=== PATIENT | male | born 1970 | race Caucasian/White ===

== ENCOUNTER 2018-06-10 09:18 | Day surgery (SDC) | payer OTHER, SELFPAY ==
[2018-06-10 09:42] VITALS: BP 130/82; PULSE 79; RESP 18; TEMP 36.8; O2SAT 98; BMI 33.7
[2018-06-10 09:52] LABS: Absolute Lymphocyte Count 1.97 X10^3/ul (0.83-4.51); Absolute Neutrophil Count 4.1 X10^3/uL (2.0-7.7); Basophil# 0.02 X10^3/uL; Basophil% 0.3 % (0-1); Eosinophil# 0.09 X10^3/uL; Eosinophils% 1.4 % (0-5); Hematocrit 48.3 % (40-54); Hemoglobin 17.2 g/dl (13.0-16.5); Lymphocyte # 1.97 X10^3/ul (4.0); Lymphocyte % 29.6 % (19-41); Mean Corp Hgb Conc 35.6 g/gl (32-36); Mean Corpuscular Hgb 30.1 pg (27.0-32.0); Mean Corpuscular Volume 84.6 fL (80-94); Mean Platelet Vol. 9.3 fl (6.2-12.0); Monocyte# 0.47 X10^3/uL; Monocyte% 7.1 % (0-10); Neutrophil % 61.4 % (47-70); Platelet Count 246 K/mm3 (150-450); RBC Distribution Width CV 13.4 % (11.6-14.6); RBC Distribution Width SD 41.7 fl (35.1-43.9); Red Blood Count 5.71 M/mm3 (4.6-6.2); White Blood Count 6.7 K/mm3 (4.4-11.0)
[2018-06-10 09:53] LABS: POSITIVE COUNT NO; POSITIVE DIFFERENTIAL NO; POSITIVE MORPHOLOGY NO
[2018-06-10] MEDS: Bupivacaine 0.5% PF 10 ML VIAL (09:54)
[2018-06-10 10:05] LABS: Anion Gap 9 (5-15); BUN 11 mg/dL (7-18); BUN/Creat Ratio 12.2 RATIO (10-20); Calcium,Total 9.3 mg/dL (8.5-10.1); Chloride 107 mmol/L (98-107); EST Glomerular Filtration Rate 96 mL/min (>60); Est Glom Filt Rate - Afr Amer 116 mL/min (>60); Estimated Creatinine Clearance 98.17 ml/min; Glucose 124 mg/dL (74-106); Potassium 4.1 mmol/L (3.5-5.1); Sodium Level 140 mmol/L (136-145)
[2018-06-10 10:11] LABS: Bedside Glucose 132 mg/dL (70-110)
[2018-06-10] MEDS: Cefazolin 2 GM in 0.9% Normal Saline 100 ML IV (10:24)
--- NOTE | 2018-06-10 11:18 | PCM.DC.POD ---
Discharge Diet: Light diet - advance as tolerated Discharge Activity: May Not Drive Weight Bearing Status: No weight bearing - No weightbearing right foot Keep extremity elevated above heart level: Right Leg - Keep right foot elevated using pillows for at least 50 minutes of every hour Call your doctor if your incision/area has: Continuous Slow Oozing, Sudden Increased Bleeding, Foul Smelling Discharge Call your doctor if you observe: Fever of 101 or Higher, Coldness, Increased Pain, Shortness of breath, Increased palpitations (irregular heartbeat), Calf discomfort, Uncontrolled pain Cleanse incision/area with: Do not get Incision Wet, Keep Dressing Clean & Dry Allergies/Adverse Reactions: Allergies liraglutide [From Victoza] Allergy (Verified 06/03/18 12:01) Other GAVE PT PANCREATITIS Medications to take at Discharge Alogliptin Benzoate [Alogliptin] 25 mg PO DAILY 06/03/18 Insulin Glargine [Lantus (BKC)] 55 - 60 units SC QHS 06/03/18 Insulin Lispro [Humalog KwikPen] 20 unit SQ TID 06/03/18 Lisinopril [Zestril] 30 mg PO DAILY 06/03/18 Lovastatin [Mevacor] 40 mg PO DAILY 06/03/18 Metformin HCl 1,000 mg PO BID 06/03/18 Cefadroxil [Duracef] 500 mg PO Q12H #10 cap 06/10/18 Hydrocodone/Acetaminophen [Vicodin 5-300 mg Tablet] 1 - 2 tab PO Q6H PRN PRN 3 Days #30 tab 06/10/18 The following prescriptions were given: Hydrocodone/Acetaminophen [Vicodin 5-300 mg Tablet] 1 - 2 tab PO Q6H PRN PRN 3 Days #30 tab PRN Reason: Pain Cefadroxil [Duracef] 500 mg PO Q12H #10 cap Primary Care Physician: Bob Clark MD [Primary Care Provider] - Test Results: Test results from this visit will be discussed in further detail at your follow-up appointment, if applicable. Please Follow Up With: Radames Tinoco DPM When: within 1 week, sooner if needed
--- NOTE | 2018-06-10 11:20 | PCM.OPRPT ---
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 Perez Rodriguez Type of Anesthesia:: General Specimen's removed: None Description of Procedure: Indications: This is a 47 year old gentleman with chronic right plantar heel pain at the level of the origin of the plantar fascia and infracalcaneal spur. This has been treated with extensive conservative/nonsurgical management, but he continues to have pain and symptoms. Xrays showed an infracalcaneal spur, and MRI confirmed plantar fasciitis. He continues to have pain which was really bothering him and affecting his daily activities. He has elected to undergo plantar fasciotomy with resection of the infracalcaneal spur. This was discussed with him in great detail, reviewed the possible benefits vs risks and potential complications. Typical post op recovery was reviewed with him. The goals and the expectations were reviewed with him in detail. The consent forms were reviewed with him in detail, and he freely signed them. No guarantees were given or implied. All of her questions were answered. Operative Procedure: The patient was brought back into the operating room and was placed on the operating room table in the supine position. He was carefully secured to the operating room table with a safety belt around the waist. A time out was performed and the patient was properly identified and the surgical plan was confirmed. The patient received 2g of IV Cefazolin for antibiotic prophylaxis. A well padded pneumatic tourniquet was applied around the patient's right ankle. The patient received general anesthesia per the anesthesiologist. The right foot was scrubbed, prepped, draped in the usual aseptic fashion. The right foot was elevated and exsanguinated using an Esmarch bandage, then the right ankle pneumatic tourniquet was inflated to 250mmHg. The infracalcaneal spur was visualized on intra operative fluoroscopy, image was saved. A skin incision was made to the medial hindfoot at the level of the plantar fascia and infracalcaneal spur, careful dissection was completed down through the subcutaneous tissue layer. A plane was created superiorly and inferiorly around the plantar fascia and the medial 50% of the plantar fascia was released via a plantar fasciotomy. The infracalcaneal spur was felt, and was carefully resected using a powered rasp. Resection of the infracalcaneal spur was confirmed using intraoperative fluoroscopy. Images pre and post infracalcaneal spur resection were saved. The site was flushed out with copious amounts of normal saline solution. The skin was reapproximated using 3-0 Nylon. The pneumatic tourniquet was deflated (total tourniquet time was 30 minutes), and there was immediate return of warmth and perfusion to the foot and to all toes on the foot with normal temperature gradient and CFT < 2 seconds to all toes. Hemostasis was achieved. A dressing was applied which consisted of Betadine soaked adaptic, 4x4 gauze, Kerlix and funmilayo bandage, being sure to apply it not to tight. The patient tolerated the above operative procedure well at the anesthesia well with no complication. The patient was transported to the recovery room with vital signs stable and in good condition. Post operative orders were placed. Post operative instructions were reviewed with her as well as with his who was here with him today. No weightbearing right foot, keep right foot elevated for at least 50 minutes of every hour, keep dressing clean, dry and intact. Prescription for Vicodin 5mg/300mg was prescribed: 1-2 tabs PO q 6 hours PRN pain for pain control. Cefadroxil 500mg PO q 12 hours was prescribed to help prevent infection as patient is diabetic. He is to follow up with me within 1 week or sooner if needed. Grafts/Implants Used: None - Complications None
[2018-06-10 11:22] VITALS: BP 130/82; BP 95/71; PULSE 95; RESP 16; TEMP 36.3; O2SAT 93
[2018-06-10 11:30] VITALS: BP 115/79; BP 130/82; PULSE 82; RESP 18; O2SAT 90
[2018-06-10 11:45] VITALS: BP 114/74; BP 130/82; PULSE 82; RESP 18; O2SAT 94
[2018-06-10 11:55] VITALS: BP 106/70; BP 130/82; PULSE 82; RESP 18; TEMP 36.2; O2SAT 93
[2018-06-10 11:55] LABS: Bedside Glucose 106 mg/dL (70-110)
[2018-06-10 12:34] VITALS: BP 130/82
== END 2018-06-10 12:35 | disposition home or self-care (01) ==
LOC: SDC 09:19 → AC 09:23
PROVIDERS: Visit Provider Podiatrist
PROC: (CPT 28119; principal; 2018-06-10 10:45)
DX: M72.2 Plantar fascial fibromatosis (principal); M77.31 Calcaneal spur, right foot; E11.9 Type 2 diabetes mellitus without complications; I10 Essential (primary) hypertension; E78.5 Hyperlipidemia, unspecified; K21.9 Gastro-esophageal reflux disease without esophagitis; F17.210 Nicotine dependence, cigarettes, uncomplicated; E66.9 Obesity, unspecified; Z68.33 Body mass index [BMI] 33.0-33.9, adult; Z79.52 Long term (current) use of systemic steroids; Z79.4 Long term (current) use of insulin; Z79.899 Other long term (current) drug therapy; Z87.11 Personal history of peptic ulcer disease; Z87.442 Personal history of urinary calculi
CPT/HCPCS: 28119; 36415; 73630; 73650; 76000; 80048; 82962; 85025; J7120; J2405

== ENCOUNTER 2022-09-01 17:21 | Emergency (ER) | payer OTHER, SELFPAY ==
[2022-09-01 17:22] VITALS: BP 140/85; PULSE 140; RESP 18; TEMP 36.4; O2SAT 98; BMI 36.5
--- NOTE | 2022-09-01 17:25 | NURSING ---
NO OLD EKGS
--- NOTE | 2022-09-01 17:41 | EKG12_ITS ---
Test Reason : REPEAT Blood Pressure : / mmHG Vent. Rate : 091 BPM Atrial Rate : 091 BPM P-R Int : 148 ms QRS Dur : 110 ms QT Int : 338 ms P-R-T Axes : 034 041 040 degrees QTc Int : 415 ms Normal sinus rhythm Low voltage QRS (Limb Leads) Confirmed by GINA BECKER, OSMAN ([id number]), film editor supervisor NOEMY HARDY ([id number]) on 09/02/2022 11:20:31 AM Referred By: Confirmed By:OSMAN FUENTES MD
[2022-09-01 17:50] LABS: Absolute Lymphocyte Count 3.14 X10^3/uL (0.83-4.51); Absolute Neutrophil Count 5.8 X10^3/uL (2.0-7.7); Basophil# 0.06 X10^3/uL; Basophil% 0.6 % (0-1); Eosinophil# 0.18 X10^3/uL; Eosinophils% 1.8 % (0-5); Hematocrit 49.5 % (40-54); Hemoglobin 16.9 g/dL (13.0-16.5); Lymphocyte # 3.14 X10^3/ul (0.83-4.51); Lymphocyte % 31.5 % (19-41); Mean Corp Hgb Conc 34.1 g/dL (32-36); Mean Corpuscular Hgb 29.2 pg (27.0-32.0); Mean Corpuscular Volume 85.5 fL (80-94); Mean Platelet Vol. 9.5 fl (6.2-12.0); Monocyte# 0.74 X10^3/uL; Monocyte% 7.4 % (0-10); NRBC Flagged by Analyzer 0 % (0-5); Neutrophil # 5.81 X10^3/uL (2.7-7.7); Neutrophil % 58.4 % (47-70); Platelet Count 245 K/mm3 (150-450); RBC Distribution Width CV 13.5 % (11.6-14.6); Red Blood Count 5.79 M/mm3 (4.6-6.2)
[2022-09-01 17:52] VITALS: BP 124/91; PULSE 138; RESP 21; O2SAT 98
[2022-09-01] MEDS: Adenosine 6 MG/2 ML Syringe IV (17:53)
[2022-09-01] MEDS: Adenosine 6 MG/2 ML Syringe 12 MG IV (18:04)
--- NOTE | 2022-09-01 18:08 | RAD_ITS ---
STUDY: X-RAY CHEST REASON FOR EXAM: Male, 51 years old. Dyspnea on exertion and decreased breath sounds TECHNIQUE: Single AP portable view of the chest. COMPARISON: None. FINDINGS: The lungs are clear and expanded. There is no demonstrated pleural abnormality. Normal size heart. Normal mediastinum and jan. Normal visualized pulmonary arteries. Normal visualized aortic arch and descending thoracic aorta. Normal visualized thoracic spine. Normal visualized ribs, clavicles, and shoulders. There is no demonstrated abnormality of the visualized soft tissue structures of the upper abdomen. RAD/Chest 1 View (Portable) IMPRESSION: Normal x-ray examination of the chest. Electronically Signed: Rishi Florentino MD at 18:21 EST ,
--- NOTE | 2022-09-01 18:12 | EDS_ITS ---
HPI History of Present Illness Chief Complaint: Palpitations Detail of Chief Complaint: Rapid heartbeat, dyspnea on exertion Informant: patient and PCP Onset/Context/Timing Onset: Days (Shortness of breath started days ago. He was unaware that his hear t was fast) Context: Sudden Onset Timing: Intermittent Quality: Dyspnea on exertion Location: Respiratory Current Severity: Gone Maximum Severity: Mild Worsened by: Activity Relieved by: Rest Associated Symptoms Associated Symptoms: None Narrative Narrative: Patient is a 51-year-old male who presents from his doctor's office because of rapid heartbeat. He had an EKG performed at the office that revealed tachycardia with rate of 1 40-1 50. Patient denies history of atrial fibrillation or atrial flutter. He denies history of PSVT. He denies history of PE or DVT. Denies leg pain, swelling discoloration. He does endorse mild nasal congestion which he attributes to sinuses. He denies cough. He denies dyspnea at rest. He denies GI or symptoms. He denies neurologic symptoms. He denies rash. He does have history of type 1 diabetes, hypertension and hypercholesterolemia. Prior similar symptoms: No Recent Illness/Hospitalization: No [facility] Medical History Cataract Diabetes HTN (hypertension) SVT (supraventricular tachycardia) Home Medications Lovastatin [Mevacor] 40 mg PO DAILY 06/03/18 [History Last Taken Unknown] insulin glargine 100 unit/mL (3 mL) subcutaneous pen (Lantus Solostar U-100 Insulin) 55 - 60 units subcut QHS 06/03/18 [History Last Taken 06/09/18 30] insulin lispro 100 unit/mL subcutaneous pen (Humalog KwikPen (U-100) Insulin) 20 unit SQ TID 06/03/18 [History Last Taken Unknown] lisinopril 30 mg tablet (Zestril) 30 mg PO DAILY 06/03/18 [History Last Taken 06/10/18 07:30 1] metformin 1,000 mg tablet 1,000 mg PO BID 06/03/18 [History Last Taken Unknown] cefadroxil 500 mg capsule 500 mg PO Q12H #10 caps 06/10/18 [Rx Last Taken Unknown] metoprolol succinate 25 mg tablet,extended release 24 hr 25 mg PO DAILY #30 tabs 09/01/22 [Rx Last Taken Unknown] Allergy/AdvReac Type Severity Reaction Status Date / Time liraglutide [From Victoza] Allergy Other Verified 09/01/22 17:23 Surgical History H/O vasectomy S/P hernia surgery Social History (Updated 09/01/22 @ 18:[address] Kenneth Bermeo MD) household members: spouse Smoking Status: Current every day smoker tobacco type: cigarettes substance use type: does not use ROS ROS ED Constitutional Constitutional ED: Denies chills, fever(s), subjective, sweats or weight loss Eyes Eyes: Denies blurry vision, change in vision or diplopia ENT ENT ED: Reports rhinorrhea; Denies ear pain or sore throat Cardiovascular Cardiovascular: Denies chest pain, orthopnea, palpitations, paroxysmal nocturnal dyspnea or racing heartbeat Respiratory/Chest Respiratory/Chest: Reports dyspnea on exertion; Denies cough, dyspnea, orthopnea, paroxysmal nocturnal dyspnea or sputum Gastrointestinal Gastrointestinal: Denies abdominal pain, diarrhea, melena, nausea or vomiting Genitourinary Genitourinary ED: Denies dysuria, hematuria or urinary frequency Musculoskeletal Musculoskeletal: Denies arthralgias, back pain, myalgias or neck pain Integumentary Denies Abrasions or rash Neurologic Neurologic: Denies headache(s), paresthesias or weakness Psychiatric Psychiatric: Denies anxiety or depression Endocrine Endocrinology: Denies cold intolerance or heat intolerance Hematologic/Lymphatic Hematologic/Lymphatic: Reports none EXAM Physical Exam Const Vital Signs: 09/01/22 17:22 09/01/22 17:52 09/01/22 18:21 Temperature 97.5 F L Temperature Source Temporal Pulse Rate 140 H 138 H 102 H Respiratory Rate 18 21 H 23 H Blood Pressure 140/85 H 124/91 H 127/93 H Blood Pressure Mean 103 102 104 Pulse Ox 98 98 96 Oxygen Delivery Method Room Air Room Air 09/01/22 19:22 Temperature Temperature Source Pulse Rate 103 H Respiratory Rate 22 H Blood Pressure 117/72 Blood Pressure Mean 87 Pulse Ox 95 Oxygen Delivery Method Room Air Positive well nourished, well developed and obese General Appearance ED: well developed and NAD; Negative for cyanotic, diaphoretic or pallor Nutritional Appearance: obese HEENT Reports moist mucous membranes HEENT Narrative: Head is atraumatic normocephalic. Ears normal. Nares patent. Uvula midline. No deviation of the tongue with protrusion. No erythema exudate the posterior pharynx. Eyes PERRL and EOMs intact bilaterally General Eye ED: Yes scleral icterus; Negative for pale conjunctiva Neck no lymphadenopathy, supple and no JVD Resp normal respiratory effort and clear to auscultation bilaterally Cardio regular rate, S1 normal heart sound, S2 normal heart sound and no murmurs Rate: tachycardic GI normal to inspection, nondistended, normoactive bowel sounds, non-tender, non- distended and no masses; Negative for hepatosplenomegaly Back/Spine no CVA tenderness Extremity normal to inspection Neuro oriented x3, CN's II-XII intact bilaterally and no sensory deficits noted Sensorium / Orientation: alert Motor Exam: strength 5/5 throughout Psych mental status grossly normal Skin no rashes or lesions noted, no wounds and skin turgor normal General Skin Exam: Negative for jaundice or pallor MDM MDM MDM Narrative Medical decision making narrative: Patient's EKG reveals a narrow complex tachycardia rate of 145. This could represent atrial flutter. Versus PSVT. TSH was obtained to rule out thyroid disease. Base metabolic panel was obtained to assess for electrolyte abnormality. CBC to rule out anemia. Patient received 6 mg adenosine with no effect. Patient converted to a sinus rhythm after 12 mg of adenosine. Will obtain repeat EKG. Patient was discharged home on beta-michael. Case was discussed with Dr. Batista. Lab Data Attestation: I reviewed the patient's lab results. Lab results narrative: CBC normal. Basic metabolic panels marked for glucose of 173. Patient does have history of type 1 diabetes. TSH is normal. Troponin is normal with days of symptoms. Troponin is normal with greater than 24 hours of pain and less than 7. Labs: Laboratory Results - last 24 hr 09/01/22 09/01/22 17:30 17:30 WBC 10.0 RBC 5.79 Hgb 16.9 H Hct 49.5 MCV 85.5 MCH 29.2 MCHC 34.1 RDW Std Deviation 42.0 RDW Coeff of [place] 13.5 Plt Count 245 MPV 9.5 Immature Gran % (Auto) 0.300 Neut % (Auto) 58.4 Lymph % (Auto) 31.5 [place] % (Auto) 7.4 Eos % (Auto) 1.8 Baso % (Auto) 0.6 Absolute Neuts (auto) 5.8 Absolute Lymphs (auto) 3.14 Nucleated RBC % 0 Sodium 139 Potassium 4.1 Chloride 109 H Carbon Dioxide 22.0 Anion Gap 8 BUN 14 Creatinine 1.09 Estim Creat Clear Calc 77.57 Est GFR (MDRD) Af Amer 92 Est GFR (MDRD) Non-Af 76 BUN/Creatinine Ratio 12.8 Glucose 173 H Calcium 9.3 Troponin I High Sens 5 TSH 3.14 Radiography Chest X-Ray - ED: 1 View, Read by ED Physician (Independently reviewed and interpreted by me at 1819.), Normal, Heart, Lungs, Mediastinum, Bony Structures and No Acute Disease Diagnostic Testing: Clinical Impression(s) from Imaging Studies Chest X-Ray 09/01/22 18:08 IMPRESSION: Normal x-ray examination of the chest. Electronically Signed: Rishi Florentino MD at 18:21 EST , EKG Initial EKG: Interpretation: - (Narrow complex tachycardia with a rate of 140. There is an RR prime in V1. QRS duration 96 ms. QT duration 110 ms. [place] is normal. There is no acute ischemic changes.) Follow-up EKG: Attestation: I personally reviewed and interpreted this EKG as follows: Interpretation: Sinus Rhythm (Rate is 91. EKG is normal. [place] interval is 148 ms. Cures duration 110 ms. QT duration 238 ms. [place] is normal.) Discharge Plan Triage Chief Complaint: Palpitations ED Provider: Kenneth Bermeo Dx/Rx/DC Orders Clinical Impression: Paroxysmal supraventricular tachycardia Instructions: ED Tachycardia: PAT Prescriptions: New metoprolol succinate 25 mg tablet extended release 24 hr 25 mg PO DAILY Qty: 30 0RF No Action metformin 1,000 MG tablet 1,000 mg PO BID lisinopril [Zestril] 30 MG tablet 30 mg PO DAILY insulin lispro [Humalog KwikPen Insulin] 100 UNIT/ML insulin pen 20 unit SQ TID Label Comments: WITH MEALS insulin glargine [Lantus Solostar U-100 Insulin] 100 UNITS/ML insulin pen 55 - 60 units subcut QHS Lovastatin [Mevacor] 40 MG tablet 40 mg PO DAILY cefadroxil 500 MG capsule 500 mg PO Q12H Qty: 10 0RF Primary Care Provider: Bob Ashraf Referrals: Esteban Carlson MD [Non-Staff] - 5-7 Days Bob Ashraf MD [Primary Care Provider] - Disposition Disposition: Home, Self Care
[2022-09-01 18:21] VITALS: BP 127/93; PULSE 102; RESP 23; O2SAT 96
[2022-09-01 18:22] LABS: Anion Gap 8 (5-15); BUN 14 mg/dL (7-18); BUN/Creat Ratio 12.8 RATIO (10-20); Calcium,Total 9.3 mg/dL (8.5-10.1); Chloride 109 mmol/L (98-107); Creatinine, Serum 1.09 mg/dL (0.70-1.30); EST Glomerular Filtration Rate 76 mL/min (>60); Est Glom Filt Rate - Afr Amer 92 mL/min (>60); Estimated Creatinine Clearance 77.57 ml/min; Glucose 173 mg/dL (74-106); Potassium 4.1 mmol/L (3.5-5.1); Sodium Level 139 mmol/L (136-145); Thyroid Stim Hormone (TSH) 3.14 uIU/mL (0.358-3.74); Troponin-I HS 5 pg/mL (3.0-78.0)
[2022-09-01 19:22] VITALS: BP 117/72; PULSE 103; RESP 22; O2SAT 95
--- NOTE | 2022-09-01 19:43 | EKG12_ITS ---
Test Reason : PALP Blood Pressure : / mmHG Vent. Rate : 133 BPM Atrial Rate : 000 BPM P-R Int : 000 ms QRS Dur : 096 ms QT Int : 310 ms P-R-T Axes : 000 047 063 degrees QTc Int : 461 ms Supraventricular tachycardia Incomplete right bundle branch block Borderline ECG Confirmed by CARLO BECKER, STEVIE ([id number]), editorial clerk NOEMY HARDY ([id number]) on 09/08/2022 9:23:57 A M Referred By: OTTO Confirmed By:MILAGRO MATOS MD
[2022-09-01] MEDS: Metoprolol Tartrate 25 MG Tablet PO (20:07)
[2022-09-01 20:13] VITALS: BP 141/91; PULSE 101; RESP 16; O2SAT 98
== END 2022-09-01 20:14 | disposition home or self-care (01) ==
PROVIDERS: Emergency Provider Emergency Medicine; PCP Family Medicine; Visit Provider Emergency Medicine
DX: I47.1 Supraventricular tachycardia (principal); E10.9 Type 1 diabetes mellitus without complications; R00.2 Palpitations; I10 Essential (primary) hypertension; R09.81 Nasal congestion; F17.210 Nicotine dependence, cigarettes, uncomplicated; E78.00 Pure hypercholesterolemia, unspecified; E66.9 Obesity, unspecified
CPT/HCPCS: 71045; 80048; 84443; 84484; 85025; 93005; 96374; 99284; J7030; A4216; J0153

== ENCOUNTER → 2022-10-20 | Outpatient (CLI) | payer OTHER, SELFPAY ==
--- NOTE | 2022-10-20 06:53 | ECHOCS_ITS ---
Reason For Study: Arrhythmia Procedure This was a 2D Doppler, Color Flow transthoracic echocardiogram. The study was technically difficult. Contrast injection was performed. Exam performed in department. Left Ventricle Normal size and thickness. The left ventricular ejection fraction is 55 %. Normal diastololic function. Right Ventricle Normal right ventricle. Atria The left and right atria are normal. Mitral Valve The mitral valve is structurally normal. No prolapse or stenosis seen. Tricuspid Valve Normal tricuspid valve. Aortic Valve Trisinus/trileaflet aortic valve. There is no aortic stenosis. No aortic valve insufficiency. Pulmonic Valve The pulmonic valve is not well visualized. Great Vessels Normal sized aortic root. Pericardium/Pleural No pericardial effusion. Medication 20 gauge I.V. with prn adaptor inserted into right arm. Diluted definity 1ml given slow IV push to enhance endocardial definition. MMode/2D Measurements & Calculations LVIDd: 4.6 cm IVSd: 1.0 cm Ao root diam: 3.2 cm LVIDs: 3.0 cm LVPWd: 1.1 cm LA dimension: 3.9 cm RVDd: 3.1 cm FS: 34.4 % LAV(MOD-bp): 45.9 ml LVAd ap4: 30.5 cm2 SV(MOD-sp4): 55.4 ml LAV(MOD-bp) Indexed: 20.7 ml/m2 LVLd ap4: 8.1 cm LAV(MOD-sp2): 50.1 ml EDV(MOD-sp4): 91.7 ml LAV(MOD-sp4): 39.1 ml EDV(sp4-el): 96.9 ml LVAs ap4: 18.0 cm2 LVLs ap4: 7.3 cm ESV(MOD-sp4): 36.4 ml ESV(sp4-el): 38.0 ml EF(MOD-sp4): 60.3 % EF(sp4-el): 60.8 % SV(sp4-el): 58.9 ml LA A4 area: 15.3 cm2 RA A4 area: 12.0 cm2 Time Measurements MV dec time: 0.21 sec Doppler Measurements & Calculations MV E max smooth: 64.0 cm/sec Lat Peak E' Smooth: 8.5 cm/sec Med Peak E' Smooth: 9.8 cm/sec MV A max smooth: 64.7 cm/sec E/E' lat: 7.5 E/E' med: 6.5 MV E/A: 0.99 MV V2 max: 66.8 cm/sec Ao V2 max: 116.4 cm/sec LV V1 max: 93.3 cm/sec MV max P.8 mmHg Ao max P.4 mmHg LV V1 max P.5 mmHg MV V2 mean: 42.1 cm/sec LV V1 mean P.9 mmHg MV mean P.81 mmHg LV V1 mean: 64.6 cm/sec MV V2 VTI: 15.9 cm LV V1 VTI: 16.3 cm PA V2 max: 99.9 cm/sec PA V2 mean: 74.9 cm/sec ECHO/Echo Complete W/ Contrast Interpretation Summary The left ventricular ejection fraction is 55 %. Ordering Physician: Erik Nieves Referring Physician: Anish Ashraf Performed By: Jairo Mcmillan RCS
--- NOTE | 2022-10-20 16:20 | STRESSREP ---
Stress Test Report Date: 10/20/2022 Procedure: Exercise tolerance test Indications: Chest pain Consent: Per the patient Procedure: The patient exercised on a Shawn protocol for 8 minutes and 5 seconds achieving a peak heart rate of 146 bpm (86% predicted maximal heart rate) with a peak blood pressure 162/80 mmHg and a peak MET capacity of approximately 10.1 MET's. The baseline ECG demonstrated normal sinus rhythm. The peak exercise ECG demonstrated no ischemic change. Single PVC was noted in recovery. The functional capacity was considered adequate. The patient had no complaints of chest discomfort during exercise or recovery. The examination was discontinued secondary to target heart rate being achieved and leg discomfort. Impression: 1. Technically adequate (percent predicted maximal heart rate greater than 85%) exercise tolerance test 2. Peak exercise ECG with no ischemic changes This note was generated with [employer] software. It may contain incorrect words, spelling, and punctuation that were not noted in checking the note before signing.
== END | disposition home or self-care (01) ==
LOC: CVS 06:52
PROVIDERS: PCP Family Medicine; Visit Provider Internal Medicine Cardiovascular Disease
DX: I47.1 Supraventricular tachycardia (principal); R07.9 Chest pain, unspecified
CPT/HCPCS: 78452; 93017; 93306; A9500; Q9957; A4216; C8929